=== PATIENT | female | born 1990 | race Caucasian/White ===

== ENCOUNTER 2019-07-04 10:16 | Emergency (ER) | payer OTHER ==
[~2019-07-04] VITALS: Ht 157.5 cm; Wt 69.8 kg
[2019-07-04] MEDS ORDERED: BC F1POW2 PO (11:33)
[2019-07-04] MEDS ORDERED: IBUPROFEN 600 MG TAB PO ONE (12:15)
[2019-07-04 13:01] LABS: INFLUENZA A AMPLIFICATION NEGATIVE (NEGATIVE); INFLUENZA B AMPLIFICATION NEGATIVE (NEGATIVE)
--- NOTE | 2019-07-04 13:02 | REP ---
PA and lateral chest: There are no comparisons. The lung henderson are clear. Cardiac size is normal. The evelyn and mediastinum are unremarkable. There are appears to be pectus carinatum as well as pectus excavatum. Impression: No acute cardiopulmonary findings. Electronically Signed by Jj Prado MD 07/04/2019 12:53 P
[2019-07-04 13:44] VITALS: BP 122/68
== END 2019-07-04 13:46 | disposition home or self-care (01) ==
LOC: M ED 10:16
DX: J06.9 Acute upper respiratory infection, unspecified (principal); F17.210 Nicotine dependence, cigarettes, uncomplicated